=== PATIENT | male | born 1995 | race Caucasian/White ===

== ENCOUNTER 2016-11-15 16:22 | Emergency (ER) | payer OTHER ==
[~2016-11-15] VITALS: Ht 175.3 cm; Wt 68.5 kg
[2016-11-15 16:35] VITALS: BP 117/71; PULSE 80; TEMP 37; O2SAT 99; Ht 175.3 cm; Wt 68.5 kg
[2016-11-15] MEDS ORDERED: CYCL10TA6 PO (16:55)
[2016-11-15] MEDS ORDERED: HYDR-5688 PO (16:55)
--- NOTE | 2016-11-15 16:55 | EMERGENCY ROOM VISIT NOTE ---
ED Visit Note First contact with patient: 16:37 CHIEF COMPLAINT: Low back pain HISTORY OF PRESENT ILLNESS: This 21-year-old male patient presents to the emergency department ambulatory complaining of pain in the low back which began this morning. The patient states that he was lifting wood and he developed a sharp pain in his low back. The pain is located in the right side of the low back. It does not radiate anywhere. The pain was gradual in onset, is now constant and worse with movement, especially flexion. The patient notes the pain as sharp and a and 9/10. The patient has taken ibuprofen and Tylenol without relief of the pain. The patient denies any loss of control of their bowel or bladder functions. There has been no leg numbness or weakness, and no change in sensation. No nausea or vomiting or abdominal pain. No chest pain or shortness of breath. The patient has not had prior back injuries. No dysuria or increased urinary frequency. REVIEW OF SYSTEMS: A review of systems was performed with positives and pertinent negatives listed in the history of present illness. All other systems were reviewed and are negative. ALLERGIES: Tramadol MEDICATIONS: No chronic medications PMH: No significant past medical history. SOCIAL HISTORY: The patient lives locally with parents. He is a smoker and denies alcohol use. PHYSICAL EXAM: VITALS: Vitals are noted on the nurse's note and reviewed by myself. Vital signs stable. GENERAL: This is a 21-year-old male, in no acute distress, nondiaphoretic, well- developed well-nourished. SKIN: The skin was without rashes, erythema, edema, or bruising. Capillary refill less than 2 seconds. NECK: Supple without nuchal rigidity. No cervical spine tenderness. No paraspinous muscle tenderness. HEART: Regular rate and rhythm without murmurs gallops or rubs. LUNGS: Clear to auscultation bilaterally without wheezes, rales or rhonchi. ABDOMEN: Positive bowel sounds x 4. Normal tympanic percussion. Soft, nontender, without masses or organomegaly. Bone sign negative. MUSCULOSKELETAL: No muscle atrophy, erythema, or edema noted of the back. There is no tenderness over the lumbar spinous processes. There is tenderness over the right lumbar paraspinous muscles. There is no tenderness over the thoracic spine or paraspinous muscles. There are no muscle spasms present. The patient is slow to move around with maximum tenderness with flexion. Negative straight leg raise test. NEURO: Patient was alert and oriented to person place and time. Normal sensation to light and sharp touch. Deep tendon reflexes 2+ in the lower extremities. Dorsalis pedis pulse 2+ bilaterally. Strength 5/5 and equal in the bilateral lower extremities. EMERGENCY DEPARTMENT COURSE: The patient was evaluated as above. He presents with atraumatic low back pain consistent with lumbar muscle strain. There is nothing to suggest cauda equina syndrome or cord compression. The patient will be treated with Flexeril and a short course of [place] for pain. Conservative measures were discussed. The [place] prescription drug monitoring program was queried and no red flags were identified. The patient verbalized understanding of my assessment and treatment plan and was discharged home in good condition. DIAGNOSIS: Lumbar strain Problem List Medical Problems: (1) Pelvic fracture Status: Resolved Current/Historical Medications Scheduled Cyclobenzaprine Hcl (Flexeril), 10 MG PO TID Ibuprofen (Advil), 200-400 MG PO prn ud Scheduled PRN Acetaminophen (Tylenol), 1,000 MG PO Q6 PRN for Pain Hydrocodone/Acetaminophen 5MG/325MG ([place] 5MG/325MG), 1-2 TABLET PO Q4H PRN for Pain Allergies Coded Allergies: Tramadol (Verified Adverse Reaction, Intermediate, VOMIT, 05/21/16) Uncoded Allergies: WOOL (Allergy, Unknown, hives, 11/11/15) Vital Signs Date Time Temp Pulse Resp B/P Pulse Ox O2 Delivery O2 Flow Rate FiO2 11/15/16 16:35 37.0 80 18 117/71 99 Room Air Departure Information Impression Primary Impression: Strain of lumbar region Dispostion Home / Self-Care Condition GOOD Prescriptions Hydrocodone/Acetaminophen 5MG/325MG ([place] 5MG/325MG) Tab 1-2 TABLET PO Q4H Y for Pain, #10 TAB For Initial Treatment Prov: Rosario Velasquez PA-C 11/15/16 Cyclobenzaprine Hcl (FLEXERIL) 10 Mg Tab 10 MG PO TID for 3 Days, #9 TAB Prov: Rosario Velasquez PA-C 11/15/16 Referrals No Doctor, Assigned (PCP) Patient Instructions My [facility] Additional Instructions You have been treated in the Emergency Department for Back Pain. You have been prescribed [place] to be used for pain control. This is a narcotic medication. You cannot drive or consume alcohol while on this medicine. This medicine should only be used for pain that cannot be controlled with over-the- counter pain medicines. You have been prescribed Flexeril (cyclobenzaprine) 1-2 tabs orally, three times per day. Do NOT exceed 30 mg (6 tabs) per day. Take your first dose at bedtime as it can make you drowsy. Always take all medications as prescribed. For pain control, you can use the following pbef-xbf-oykgyvh medicines (if >12 yo): - Regular strength (325mg/tab) Tylenol (acetaminophen) 2 tabs every 4-6 hours as needed. Do not exceed 12 tablets in a 24 hour period. Avoid taking more than 4 grams (4000 mg) of Tylenol per day. This includes any other sources of acetaminophen you may take on a regular basis. - Regular strength (200 mg/tab) Advil (ibuprofen) 1-2 tabs every 4-6 hours as needed. Do not exceed a dose of 3200 mg per day. If this is an acute injury, ice can be applied to the area of pain for the first 3 days to help decrease pain and inflammation. After the first 3 days, a heating pad can be used over the area for continued soothing relief. You should schedule a follow-up appointment in 2-3 days with your Primary Care Provider for further evaluation and treatment of your back pain. Return to the Emergency Department if your current symptoms worsen despite treatment course outlined above, or if you develop any of the following symptoms : intractable pain despite aforementioned treatment course, loss of control of your bowel or bladder, numbness or tingling in your groin, or development of a fever. Problem Qualifiers Primary Impression: Strain of lumbar region Encounter type: initial encounter Qualified Codes: S39.012A - Strain of muscle, fascia and tendon of lower back, initial encounter
[2016-11-15] MEDS ORDERED: IBUP-1050 PO (16:59)
[2017-04-19] MEDS ORDERED: ACET-1256 PO (16:59)
== END 2016-11-15 17:05 | disposition home or self-care (01) ==
LOC: C.EDB 16:25 → C.EDD 17:05
DX: S39.012A Strain of muscle, fascia and tendon of lower back, initial encounter (principal); X50.1XXA Overexertion from prolonged static or awkward postures, initial encounter; Y92.89 Other specified places as the place of occurrence of the external cause; Y93.89 Activity, other specified; Z79.899 Other long term (current) drug therapy

== ENCOUNTER 2016-12-03 12:43 | Emergency (ER) | payer OTHER ==
[~2016-12-03] VITALS: Ht 175.3 cm; Wt 68.9 kg
[~2016-12-03 12:43] MED LIST: HYDR-5688 PO; IBUP-1050 PO
[2016-12-03 12:45] VITALS: Ht 175.3 cm; Wt 68.9 kg
[2016-12-03] MEDS ORDERED: FLX10 PO (12:52)
--- NOTE | 2016-12-03 13:04 | EMERGENCY ROOM VISIT NOTE ---
ED Visit Note First contact with patient: 12:47 CHIEF COMPLAINT: "Deep in back or in a lot of pain". HISTORY OF PRESENT ILLNESS: This 21-year-old male patient presented to the emergency department via private vehicle with a progressive toothache for past few days. The patient believes it is coming from the posterior superior and inferior molar region at the location where . the wisdom teeth are The pain is now steady and severe and radiates to the bilateral jaws. The patient has a dentist appointment set up for tomorrow. They rate their pain a 7/10 and the ibuprofen and Tylenol they have been taking has not relieved the pain. Denies facial swelling or fever. The patient denies any discharge from the mouth. Patient denies any throat swelling, throat pain, fevers, chills, chest pain, shortness of breath. REVIEW OF SYSTEMS: A 6 system review of systems was completed with positives and pertinent negatives listed in the HPI. 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 PHYSICAL EXAM: Vitals are noted on the nurse's note and reviewed by myself. Vital signs stable. Temperature 36.8C orally. GENERAL: 21-year-old male, in no acute distress, nondiaphoretic, well-developed well-nourished. Mouth: The mouth exam is essentially unremarkable except for pinpoint tenderness at the posterior molar region at the region where the wisdom teeth should be, exam without any discharge or signs of an abscess. The remainder of the pharynx and tonsils are without erythema, edema, or exudate. There is slight associated trismus, but the patient states that when he opens his mouth muscles press on the molar regions causing pain. There is no tonsillar involvement. The airway is patent. There is no facial swelling, cervical or submandibular lymphadenopathy. The patient appears uncomfortable and in pain. The patient has overall good dental hygiene. EARS: External auditory canals clear, tympanic membranes pearly montalvo without erythema or effusion bilaterally. ED COURSE: Patient was seen and evaluated as above. Physical exam is consistent with that of pain with teething. It appears that the patient is experiencing his molar teeth being crowded/pressed upon by the upcoming wisdom teeth. It appears that the permanent fix for this his extraction of the wisdom teeth. At this time I do believe it is reasonable to provide the patient with a short-term prescription for pain medication until he can see his dentist tomorrow. There was no evidence of infection. No evidence of throat, Lon angina or any other infectious process. In the evaluation and treatment of this patient, the following differential diagnoses were considered: Periapical Abscess, Osteonecrosis of the Jaw, Dental Fracture, Dental Caries, Lon's Angina, teething pain, Vincent's Angina, Facial Cellulitis. In the treatment of this patient controlled medication was utilized and therefore the [facility], Prescription Drug Monitoring Program website was utilized to look up this patient. No concerns were identified that would prohibit or alter my treatment decision. Problem List Medical Problems: (1) Pelvic fracture Status: Resolved Current/Historical Medications Scheduled Cyclobenzaprine HCl (Cyclobenzaprine HCl), 1 TAB PO DAILY Ibuprofen (Advil), 200-400 MG PO prn ud Scheduled PRN Acetaminophen (Tylenol), 1,000 MG PO Q6 PRN for Pain Hydrocodone/Acetaminophen 5MG/325MG ([place] 5MG/325MG), 1-2 TABLET PO Q6 PRN for Pain Allergies Coded Allergies: Tramadol (Verified Adverse Reaction, Intermediate, VOMIT, 12/03/16) Uncoded Allergies: WOOL (Allergy, Unknown, hives, 11/11/15) Vital Signs Date Time Temp Pulse Resp B/P Pulse Ox O2 Delivery O2 Flow Rate FiO2 12/03/16 13:12 36.8 106 18 136/70 96 12/03/16 12:45 36.8 106 18 136/70 96 Room Air Departure Information Impression Primary Impression: Odontalgia Dispostion Home / Self-Care Condition GOOD Prescriptions Hydrocodone/Acetaminophen 5MG/325MG ([place] 5MG/325MG) Tab 1-2 TABLET PO Q6 Y for Pain, #15 TAB For Initial Treatment Prov: Vin Bunch PA-C 12/03/16 Referrals No Doctor, Assigned (PCP) Patient Instructions My [facility] Additional Instructions You have been treated in the Emergency Department for Dental Pain. You have been prescribed [place] to be used for pain control. This is a narcotic medication. You cannot drive or consume alcohol while on this medicine. This medicine should only be used for pain that cannot be controlled with over-the- counter pain medicines. DO NOT TAKE WITH TYLENOL!! For pain control, you can use the following rleo-ebc-knolasc medicines (if >12 yo): - Regular strength (200 mg/tab) Advil (ibuprofen) 1-2 tabs every 4-6 hours as needed. Do not exceed a dose of 3200 mg per day. Refrain from smoking cigarettes or using chewing tobacco until you have been evaluated by your dentist. Keeping beverages lukewarm and consuming soft foods can decrease your pain. Warm compresses over the affected area may offer some relief. You MUST seek evaluation of your dental pain by a dentist following your visit to the Emergency Department. The Emergency Department is not capable of treating dental issues long-term. You should call your dentist as soon as possible to make an appointment for evaluation of your dental pain. Return to the emergency department if you develop the following symptoms despite treatment course outlined above: fever, intractable pain, increased redness, swelling, or purulent discharge. Please return to the emergency department with any new/concerning symptoms
[2016-12-03] MEDS ORDERED: HYDR-5688 PO (13:05)
[2016-12-03 13:12] VITALS: BP 136/70; PULSE 106; TEMP 36.8; O2SAT 96
[2017-04-19] MEDS ORDERED: ACET-1256 PO (16:59)
== END 2016-12-03 13:12 | disposition home or self-care (01) ==
LOC: C.EDB 12:43 → C.EDD 13:12
DX: K08.89 Other specified disorders of teeth and supporting structures (principal)

== ENCOUNTER 2017-01-01 19:08 | Emergency (ER) | payer OTHER ==
[~2017-01-01] VITALS: Ht 175.3 cm; Wt 69.6 kg
[~2017-01-01 19:08] MED LIST changes: +FLX10 PO
[2017-01-01 19:16] VITALS: BP 121/79; PULSE 74; TEMP 37; O2SAT 99; Ht 175.3 cm; Wt 69.6 kg
--- NOTE | 2017-01-01 22:33 | EMERGENCY ROOM VISIT NOTE ---
History First contact with patient: 19:22 Chief Complaint: HEAD INJURY (MINOR) Stated Complaint: NECK HURTS, MIGRAINES History of Present Illness The patient is a 21 year old male who presents to the Emergency Room with complaints of persistent headache and neck pain after running into a low tree branch while running through the [place] 2 days ago. The patient reports that he is very physically active. He denies any loss of consciousness from this injury. The impact was on the right forehead region, and has had intermittent discomfort in this area and left posterior head. He also reports mostly left- sided neck discomfort. He denies any paresthesias, numbness or burning of the upper extremities. He also denies any pain radiating between the shoulder blades. He reports feeling fatigued and with mild photophobia. He denies any dizziness or coordination problems. The patient rates his discomfort a 6 out of 10. He currently does not have a family doctor. He denies any prior history of significant head injuries. Review of Systems 10 system review was performed and was negative except for pertinent positives and negatives as indicated in history of present illness Past Medical/Surgical History Medical Problems: (1) Pelvic fracture Family History FH: heart disease Hypertension Social History Smoking Status: Current Every Day Smoker Alcohol Use: none Marital Status: single Housing Status: lives with family Occupation Status: student Current/Historical Medications Scheduled Cyclobenzaprine HCl (Cyclobenzaprine HCl), 1 TAB PO DAILY Ibuprofen (Advil), 200-400 MG PO prn ud Scheduled PRN Acetaminophen (Tylenol), 1,000 MG PO Q6 PRN for Pain Hydrocodone/Acetaminophen 5MG/325MG ([place] 5MG/325MG), 1-2 TABLET PO Q6 PRN for Pain Allergies Coded Allergies: Tramadol (Verified Adverse Reaction, Intermediate, VOMIT, 12/03/16) Uncoded Allergies: WOOL (Allergy, Unknown, hives, 11/11/15) Physical Exam Vital Signs Date Time Temp Pulse Resp B/P Pulse Ox O2 Delivery O2 Flow Rate FiO2 01/01/17 19:16 37.0 74 16 121/79 99 Room Air Pain Rating (0-10): 5.0 Physical Exam CONSTITUTIONAL: Healthy and well nourished. Alert and oriented X 3 with positive affect. GCS 15. HEENT: Normocephalic, atraumatic. Pupils equal, round and reactive. No forehead or scalp edema, ecchymosis, erythema, abrasions or lacerations. No subconjunctival hemorrhage, epistaxis, hemotympanum, raccoon's eyes or Reeves sign. NECK: Examination shows left paraspinous muscle tightness. He also has mild tenderness to the central cervical spine region. RESPIRATORY: Clear to auscultation bilaterally with no wheezing, crackles, rhonchi or stridor. CARDIOVASCULAR: Regular rate and rhythm with no murmurs, rubs or gallops. MUSCULOSKELETAL: The patient has a left above elbow malformation. He has no worsening discomfort with range of motion of the shoulders. No tenderness to palpation through the trapezius muscles or thoracolumbar spine. INTEGUMENTARY: No rash or other significant dermatologic conditions noted. NEUROLOGIC: Cranial nerves II-XII grossly intact. No focal neurologic deficits noted. Normal finger to nose test on the right. Negative pronator drift. No ataxia with ambulation. Medical Decision & Procedures ED Course Patient history and physical exam were performed. Nurse's notes were reviewed. I did offer a CT scan to rule out intracranial bleed or cervical spine fracture. The patient refused. He wanted to know if he could get a prescription for a muscle relaxer. I did explain to the patient that his symptoms are consistent with concussion, and I would prefer not to prescribe medications that can make him drowsy. He was encouraged to take Tylenol as needed for pain. He was also encouraged to refrain from NSAIDs and aspirin for now. He was encouraged to alternate ice and heat to the neck. He was instructed to return to the emergency department for any progressively worsening symptoms, otherwise find a family doctor for further follow-up. The patient was provided a concussion handout. The patient voiced understanding of all discharge instructions was happy with plan of care, and rated his pain a 5 out of 10 at the time of discharge. Impression Primary Impression: Concussion Additional Impression: Cervical strain, acute Departure Information Dispostion Home / Self-Care Condition [employer] HOME CARE DOCUMENTATION FORM, IMPORTANT VISIT INFORMATION Patient Instructions My [facility], ED Concussion Additional Instructions Read concussion handout. No strenuous activities until your headache completely resolves. Intermittently apply ice to the neck over the next few days, then moist heat as needed. Tylenol 1000 mg every 6-8 hours. Avoid ibuprofen/Motrin/Aleve/Advil/naproxen for now. Return to the emergency department for any progressively worsening symptoms, otherwise follow-up with your family doctor as needed for further management. FOR WORK: Vlad was in the ER [facility], 10/01/16 from 7:15-7:40 PM. Problem Qualifiers Primary Impression: Concussion Encounter type: initial encounter Loss of consciousness presence/duration: without LOC Qualified Codes: S06.0X0A - Concussion without loss of consciousness, initial encounter Additional Impression: Cervical strain, acute Encounter type: initial encounter Qualified Codes: S16.1XXA - Strain of muscle, fascia and tendon at neck level, initial encounter
[2017-04-19] MEDS ORDERED: ACET-1256 PO (16:59)
== END 2017-01-01 19:47 | disposition home or self-care (01) ==
LOC: C.EDB 19:09 → C.EDD 19:47
DX: S06.0X0A Concussion without loss of consciousness, initial encounter (principal); S16.1XXA Strain of muscle, fascia and tendon at neck level, initial encounter; W22.09XA Striking against other stationary object, initial encounter; Y92.828 Other wilderness area as the place of occurrence of the external cause; Y93.02 Activity, running; M21.922 Unspecified acquired deformity of left upper arm; F17.200 Nicotine dependence, unspecified, uncomplicated; Z82.49 Family history of ischemic heart disease and other diseases of the circulatory system

== ENCOUNTER 2017-01-14 18:00 | Emergency (ER) | payer OTHER ==
[~2017-01-14] VITALS: Ht 175.3 cm; Wt 66.5 kg
[2017-01-14 18:15] VITALS: TEMP 37.1; Ht 175.3 cm; Wt 66.5 kg
[2017-01-14] MEDS ORDERED: KETOROLAC TROMETHAMINE 60 MG/2 ML VIAL IM STA (18:31)
--- NOTE | 2017-01-14 19:33 | DIAGNOSTIC IMAGING REPORT ---
PELVIS 1 OR 2 VIEW ROUTINE CLINICAL HISTORY: right lower bakc pain s/p fall pain COMPARISON: None. DISCUSSION: The bones and joint spaces appear intact. There is no evidence of fracture, dislocation or bony disease. There is no evidence for soft tissue swelling. IMPRESSION: Negative study. Electronically signed by: Tank Wolff M.D. 01/14/2017 7:31 PM Dictated Date/Time: 01/14/2017 7:31 PM
--- NOTE | 2017-01-14 19:34 | DIAGNOSTIC IMAGING REPORT ---
LUMBAR SPINE 2 OR 3 VIEWS CLINICAL HISTORY: lower back pain pain. Trauma. COMPARISON STUDY: 05/21/2016 FINDINGS: No evidence for acute bony pathology. Vertebral body stature is normal. Disc spaces are well-preserved. Slight scoliosis most likely on the basis of muscular spasm IMPRESSION: No acute bony abnormality Electronically signed by: Tank Wolff M.D. 01/14/2017 7:32 PM Dictated Date/Time: 01/14/2017 7:32 PM
[2017-01-14 20:32] VITALS: BP 120/89; PULSE 81; O2SAT 99
--- NOTE | 2017-01-14 22:31 | EMERGENCY ROOM VISIT NOTE ---
History Report prepared by Peace: Sherie Valdez Under the Supervision of: Dr. Raman Armstrong D.O. First contact with patient: 18:20 Chief Complaint: BACK PAIN Stated Complaint: SWELLING AND MAJOR PAIN LOWER BACK History of Present Illness The patient is a 21 year old male who presents to the Emergency Room with complaints of persistent lower back pain starting several days ago. He was going up some steps when he slipped and fell onto his lower back. He has had pain since then. He took Tylenol to no significant relief. He reports swelling in his lower back. He denies any numbness or weakness in the legs. He denies any head injury. He denies any other medical problems. He admits to smoking. Denies any chest or abdomen pain. He is able to walk without difficulty. No numbness in his groin. Able to urinate and move his bowels without difficulty. Source of History: patient Onset: several days ago Position: back (lower) Quality: other (pain) Timing: other (persistent) Associated Symptoms: No numbness, No weakness Note: Pt reports swelling. Review of Systems See HPI for pertinent positives & negatives. A total of 10 systems reviewed and were otherwise negative. Past Medical & Surgical Medical Problems: (1) Nicotine Dependence, Cigarettes, Uncomplicated (2) Pelvic fracture (3) Pneumonia Family History FH: heart disease Hypertension Social History Smoking Status: Current Every Day Smoker Alcohol Use: none Marital Status: single Housing Status: lives with family Occupation Status: student Current/Historical Medications Scheduled Cyclobenzaprine HCl (Cyclobenzaprine HCl), 1 TAB PO DAILY Ibuprofen (Advil), 200-400 MG PO prn ud Scheduled PRN Acetaminophen (Tylenol), 1,000 MG PO Q6 PRN for Pain Hydrocodone/Acetaminophen 5MG/325MG ([place] 5MG/325MG), 1-2 TABLET PO Q6 PRN for Pain Allergies Coded Allergies: Tramadol (Verified Adverse Reaction, Intermediate, VOMIT, 12/03/16) Uncoded Allergies: WOOL (Allergy, Unknown, hives, 11/11/15) Physical Exam Vital Signs Date Time Temp Pulse Resp B/P Pulse Ox O2 Delivery O2 Flow Rate FiO2 01/14/17 20:32 81 16 120/89 99 01/14/17 18:15 37.1 72 18 128/81 98 Room Air Physical Exam GENERAL: sitting up in bed, no acute distress, nontoxic HEAD: normocephalic, atraumatic EYE EXAM: normal conjunctiva OROPHARYNX: no exudate, no erythema, lips, buccal mucosa, and tongue normal and mucous membranes are moist NECK: supple, no nuchal rigidity, no adenopathy, non-tender LUNGS: Clear to auscultation. Normal chest wall mechanics HEART: no murmurs, S1 normal and S2 normal ABDOMEN: abdomen soft, non-tender, normo-active bowel sounds, no masses, no rebound or guarding. BACK: Right lower lumbar paraspinal tenderness with scant swelling. PELVIS: Stable to compression posteriorly and anteriorly. 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 LOWER EXTREMITIES: Flexion and extension of the hip knee ankle and EHL 5 out of 5 bilateral. Patellar and Achilles reflexes 2 out of 4. Gross sensation intact. Ambulates without difficulty. NEURO EXAM: Normal sensorium, cranial nerves II-XII grossly intact, normal speech, no gross weakness of arms. Medical Decision & Procedures ER Provider Diagnostic Interpretation: Xray results as stated below per my and the radiologist's interpretation: PELVIS 1 OR 2 VIEW ROUTINE CLINICAL HISTORY: right lower bakc pain s/p fall pain COMPARISON: None. DISCUSSION: The bones and joint spaces appear intact. There is no evidence of fracture, dislocation or bony disease. There is no evidence for soft tissue swelling. IMPRESSION: Negative study. Electronically signed by: Tank Wolff M.D. 01/14/2017 7:31 PM Dictated Date/Time: 01/14/2017 7:31 PM LUMBAR SPINE 2 OR 3 VIEWS CLINICAL HISTORY: lower back pain pain. Trauma. COMPARISON STUDY: 05/21/2016 FINDINGS: No evidence for acute bony pathology. Vertebral body stature is normal. Disc spaces are well-preserved. Slight scoliosis most likely on the basis of muscular spasm IMPRESSION: No acute bony abnormality Electronically signed by: Tank Wolff M.D. 01/14/2017 7:32 PM Dictated Date/Time: 01/14/2017 7:32 PM Medications Administered Medications (Trade) Dose Ordered Sig/Shanika Route Start Time Stop Time Status Last Admin Dose Admin Ketorolac Tromethamine (Toradol Inj) 60 mg NOW STAT IM 01/14/17 18:31 01/14/17 18:33 DC 01/14/17 18:37 60 MG ED Course ED COURSE: Vital signs were reviewed and showed normal vitals. The patients medical record was reviewed The above diagnostic studies were performed and reviewed. ED treatments and interventions as stated above. 1823: The patient was evaluated in room C8. A complete history and physical examination was performed. 183: Toradol Inj 60 mg IM. 2009: Upon reevaluation, the patient is resting comfortably.I discussed my findings with the patient and he understands and agrees with the treatment plan. Based on the patients age, coexisting illnesses, exam and lab findings the decision to treat as an outpatient was made. The patient remained stable while under my care. The patient appeared well at the time of discharge. Medical Decision Differential diagnoses include major intracranial, cervical, spinal, thoracic, abdominal, pelvic and neurologic injury. Fracture, contusion, sprain, strain, laceration, abrasions included as well. Impression Primary Impression: Contusion, back Scribe Attestation The scribe's documentation has been prepared under my direction and personally reviewed by me in its entirety. I confirm that the note above accurately reflects all work, treatment, procedures, and medical decision making performed by me. Departure Information Dispostion Home / Self-Care Referrals No Doctor, Assigned (PCP) Forms HOME CARE DOCUMENTATION FORM, IMPORTANT VISIT INFORMATION, School Instructions, Work Instructions Patient Instructions ED Contusion Back, My [facility] Additional Instructions Please follow up with your primary care doctor with in the next 24 hours. Any worsening of your symptoms, please return to the ED immediately. This includes numbness or weakness in your arms or legs, numbness in your groin, inability to move your bowels or urinate, or any other concerning signs or symptoms from your standpoint. Please take Motrin or Tylenol as needed for pain. Problem Qualifiers Primary Impression: Contusion, back Encounter type: initial encounter Laterality: right Qualified Codes: S20.221A - Contusion of right back wall of thorax, initial encounter
[2017-04-19] MEDS ORDERED: ACET-1256 PO (16:59)
== END 2017-01-14 20:30 | disposition home or self-care (01) ==
LOC: C.EDB 18:02 → C.EDC 20:30
DX: S20.221A Contusion of right back wall of thorax, initial encounter (principal); W10.9XXA Fall (on) (from) unspecified stairs and steps, initial encounter; F17.210 Nicotine dependence, cigarettes, uncomplicated; Z89.212 Acquired absence of left upper limb below elbow

== ENCOUNTER 2017-04-19 20:58 | Emergency (ER) | payer OTHER ==
[~2017-04-19] VITALS: Ht 175.3 cm; Wt 67.4 kg
[~2017-04-19 20:58] MED LIST changes: +ACET-1256 PO
[2017-04-19 21:03] VITALS: BP 113/75; PULSE 68; TEMP 37.1; O2SAT 97; Ht 175.3 cm; Wt 67.4 kg
[2017-04-19] MEDS ORDERED: XYLOCAINE 1%/SOD BICARB 20 ML VIAL INFIL STA (21:34)
[2017-04-19] MEDS ORDERED: OXYCODONE HCL IR 5 MG TAB (IMMEDIATE RELEASE) PO STA (21:34)
[2017-04-19] MEDS ORDERED: DIPHTHERIA/TETANUS/PERTUSSIS 0.5 ML SYR/VIAL IM. ONE (21:45)
[2017-04-19] MEDS ORDERED: CEPH500C PO (22:09)
[2017-04-19] MEDS ORDERED: CEPHALEXIN 500MG HOME PACK 1 EA BTL PO STA (22:10)
[2017-04-19] MEDS ORDERED: OXYCODONE IR HOME PACK PO STA (22:10)
--- NOTE | 2017-04-19 22:10 | EMERGENCY ROOM VISIT NOTE ---
ED Visit Note First contact with patient: 21:12 Chief Complaint: "Big cut on right hand". History of Present Illness: This patient is a 21-year-old male who presents to the Emergency Department via private vehicle for evaluation of their right hand laceration. Patient sustained the laceration while cutting a piece of meat earlier today, when the knife slipped and he cut the ventral aspect of his right hand. They report a moderate amount of bleeding initially. They deny any numbness or tingling into the distal extremity. They have tried Tylenol and ibuprofen for the pain with without relief of their symptoms. Patient rates his current discomfort as a 8.5/10. Patient's Tetanus status is believed to be not currently up-to-date. Medications: As noted below Allergies: As noted below PMH: Left arm amputation SHx: Patient lives locally ROS: All pertinent positive and negative review of systems are appropriately documented in the History of Present Illness. Physical Exam: VITAL SIGNS - Vital signs and nursing notes were reviewed. Stable. GENERAL -21-year-old male appearing his stated age who is in no acute distress. Communicates well with provider and answers questions appropriately. SKIN - There is a 3 cm long laceration noted to the ventral aspect of the right hand. The edges gape apart with traction. No foreign bodies appreciated. Upon further examination there are no deep structures including vessel, tendon, or bony structures appreciated. There is no active bleeding noted. MUSCULOSKELETAL -full range of motion of the right hand noted. Full flexion and extension ability of the digits of the right hand. No neurovascular deficit appreciated. ED Course: Patient was seen and evaluated by myself. Risks and benefits of performing primary wound closure versus no repair were discussed with the patient who verbalizes understanding. Verbal consent was obtained prior to performing the procedure. 2 cc of 1% lidocaine was used to anesthetize the 3 cm laceration. The wound was cleansed and prepped in the typical sterile fashion utilizing normal saline and Betadine. The wound was sterilely draped. Once proper anesthetization was established, the wound was further examined and demonstrated no deep involvement except in the middle portion of which did not extend below the dermis. The wound was copiously irrigated with normal saline and Betadine. The wound was closed using 2 simple, 5-0 nylon sutures with the wound edges being well approximated. The patient is presenting to 12 hours after the injury, therefore this will be loosely closed with 2 sutures after Melendez cleansing the wound, and prophylaxis with Keflex. Patient tolerated the procedure well. No complications were met. The wound was cleansed and dressed with a Bacitracin dressing. Patient received their Adacel vaccination. Patient educated on worrisome symptoms for return visit to the Emergency Department. Patient discharged to home in good condition. Because of the patient's amount of pain that he was experiencing, I will give him a short prescription of pain medication via home pack In evaluation treatment this patient following differential diagnoses were entertained: Fracture, laceration, among others. Problem List Medical Problems: (1) Pelvic fracture Status: Resolved Current/Historical Medications Scheduled Cephalexin Monohydrate (Keflex), 500 MG PO TID Scheduled PRN Acetaminophen (Tylenol), 1,000 MG PO Q6 PRN for Pain Allergies Coded Allergies: Tramadol (Verified Adverse Reaction, Intermediate, VOMIT, 12/03/16) Uncoded Allergies: WOOL (Allergy, Unknown, hives, 11/11/15) Vital Signs Date Time Temp Pulse Resp B/P (MAP) Pulse Ox O2 Delivery O2 Flow Rate FiO2 04/19/17 21:03 37.1 68 18 113/75 97 Room Air Medications Administered Medications (Trade) Dose Ordered Sig/Shanika Route Start Time Stop Time Status Last Admin Dose Admin Oxycodone HCl (Roxicodone Immediate Rel Tab) 5 mg NOW STAT PO 04/19/17 21:34 04/19/17 21:35 DC 04/19/17 21:42 5 MG Diphtheria/ Pertussis/Tetanus Vacc (Adacel Inj) 0.5 ml ONCE ONCE IM. 04/19/17 21:45 04/19/17 21:47 DC 04/19/17 21:41 0.5 ML Cephalexin Monohydrate (Keflex 500MG Home Pack) 1 homepack NOW STAT PO 04/19/17 22:10 04/19/17 22:12 DC 04/19/17 22:10 1 HOMEPACK Oxycodone HCl (Roxicodone Immediate Rel 5MG Home Pack) 1 homepack UD STAT PO 04/19/17 22:10 04/19/17 22:12 DC 04/19/17 22:10 1 HOMEPACK Departure Information Impression Primary Impression: Laceration Dispostion Home / Self-Care Condition GOOD Prescriptions Cephalexin Monohydrate (Keflex) 500 Mg Cap 500 MG PO TID for 5 Days, #15 CAP Prov: Vin Bunch PA-C 04/19/17 Referrals No Doctor, Assigned (PCP) Patient Instructions My [facility] Additional Instructions Discharge Instructions: You have received 2 sutures on your hand. These sutures are NOT dissolvable and WILL need to be removed by a health care provider in 10 days. You can return to the Emergency Department or contact your Primary Care Provider to have the sutures removed. You've been prescribed Keflex which is to be taken as directed. You were prescribed a short course of OxyIR for pain. Please note driving with this. Proper wound care is essential for adequate wound healing and infection prevention. You can shower and clean the wound with soap and water. Do not scour over the wound, pat dry with a towel. Do not submerse the wound (i.e. bathe or dish wash) until the sutures have been removed. You can use an antibiotic ointment with a dressing over the wound for the next 3-4 days. After this time you may leave the wound dry and open to the air. If crust develops over the wound you can use a Q-tip to apply a 1:1 peroxide:water solution to clean the wound. Look for signs of infection of the wound including: increased pain, swelling, foul discharge, streaking, or increased temperature. If any of these are noticed you should return to the Emergency Department for further assessment and treatment. As with any laceration you may have received nerve damage to the surrounding tissues. This damage may or may not be permanent. You should keep the area covered with sunscreen for the first 6 months to 1 year when at risk for exposure to help minimize scarring. You can also use scar reducing creams or Vitamin E oil to help minimize scarring. For pain control, you can use the following [id number] medicines: - Regular strength (325mg/tab) Tylenol (acetaminophen) 2 tabs every 4-6 hours as needed. Do not exceed 12 tablets in a 24 hour period. Avoid taking more than 3 grams (3000 mg) of Tylenol per day. This includes any other sources of acetaminophen you may take on a regular basis. - Regular strength (200 mg/tab) Advil (ibuprofen) 1-2 tabs every 4-6 hours as needed. Do not exceed a dose of 3200 mg per day. Return to the emergency department if your symptoms worsen despite treatment course outlined above.
== END 2017-04-19 22:25 | disposition home or self-care (01) ==
LOC: C.EDB 20:59 → C.EDD 22:25
DX: S61.411A Laceration without foreign body of right hand, initial encounter (principal); W26.0XXA Contact with knife, initial encounter; Z23 Encounter for immunization

== ENCOUNTER 2018-03-22 13:26 | Emergency (ER) | payer OTHER ==
[~2018-03-22] VITALS: Ht 175.3 cm; Wt 69.9 kg
[~2018-03-22 13:26] MED LIST changes: -FLX10 PO; -HYDR-5688 PO; -IBUP-1050 PO
[2018-03-22 13:30] VITALS: TEMP 36.7; Ht 175.3 cm; Wt 69.9 kg
--- NOTE | 2018-03-22 14:28 | DIAGNOSTIC IMAGING REPORT ---
R KNEE 3 VIEWS CLINICAL HISTORY: Right knee pain status post trauma COMPARISON: None. DISCUSSION: No fractures or dislocations are visualized. IMPRESSION: No fractures identified. Electronically signed by: Marc Abarca M.D. 03/22/2018 2:26 PM Dictated Date/Time: 03/22/2018 2:26 PM
--- NOTE | 2018-03-22 14:37 | EMERGENCY ROOM VISIT NOTE ---
ED Visit Note First contact with patient: 13:34 CHIEF COMPLAINT: knee pain HISTORY OF PRESENT ILLNESS: This 22 yp patient presents to the emergency department after sustaining an injury to the right knee when he twisted it earlier this morning. The patient denies any other injuries besides their knee. The patient denies swelling or bruising. There is pain posterior aspect. They rate the pain as throbbing and 6/10. The patient states they are barely able to walk on it. No numbness or tingling. + previous injuries to this knee. No ankle, foot or hip pain. Patient states he occasionally gets radiating pain down the leg. Not constant. Patient denies carmona ankle or foot pain. Patient states the Motrin and Tylenol have not helped and states he thinks are made of sugar. REVIEW OF SYSTEMS: A 6 system review of systems was completed with positives and pertinent negatives listed in the HPI. ALLERGIES: Tramadol, wool MEDICATIONS: Reviewed PMH: Orthopedic injuries SOCIAL HISTORY: No drug use PHYSICAL EXAM: Vital Signs: Reviewed Nurse's notes, vital signs stable. GENERAL : White male, no acute distress, but appears in pain, well-developed, well- nourished. MENTAL STATUS: Alert, oriented to person place and time, and cooperative. MUSCULOSKELETAL: The right knee is not swollen. There is no ecchymosis. There is no joint effusion present. The patient is tender diffusely. There is no joint line tenderness. The patella not subluxate. Range of motion is intact but painful. Strength of the quads and hamstrings is 5/5. Melany's is negative. Gavi's and Anterior Drawer tests are negative. There is pain with varus and valgus stressing. The foot and toes are warm and well- perfused. Dorsalis pedis pulse 2+. Sensation to pain and light touch is intact. Capillary refill less than 2 seconds. EMERGENCY DEPARTMENT COURSE: I examined the patient. X-rays of the right knee were reviewed by myself and read by radiology and reveal no fracture. The patient was placed in a knee immobilizer under my direction and the position was satisfactory. The patient was instructed on the use of crutches. The patient was discharged home in good condition. Patient was strongly encouraged to take NSAIDs for the pain and to follow-up with orthopedics. DIAGNOSIS: Right knee injury DISCHARGE INSTRUCTIONS: Ibuprofen(Motrin, Advil) may be used for fever or pain. Use 600mg every six hours as needed. Take with food. Avoid using more than 2400mg in a 24 hour period. Do not use 2400mg per day for more than three consecutive days without physician direction. Prolonged inappropriate use can lead to stomach upset or ulcers. This medication can be taken if you need to drive, work, or perform activities which may be dangerous when taking narcotic pain medication. (AND/OR) Acetaminophen(Tylenol) may be used for fever or pain. Use 1000mg every six hours as needed. Avoid using more than 3000mg in a 24 hour period. This medication can be taken if you need to drive, work, or perform activities which may be dangerous when taking narcotic pain medication. Ice compresses for 20 minutes at a time four times daily for 2-3 days. Use the crutches as instructed. Rest and elevate your injury. Wear knee immobilizer when up and about. Do not have it so tight that you cannot feel your foot. Continue current medications. Return to the ER immediately for any numbness, tingling, severe pain, extreme swelling in the extremity or as needed. Call Orthopedics in 2-3 days to arrange follow up for your injury. Problem List Medical Problems: (1) Pelvic fracture Status: Resolved Current/Historical Medications Scheduled PRN Acetaminophen (Tylenol), 1,000 MG PO Q6 PRN for Pain Allergies Coded Allergies: Tramadol (Verified Adverse Reaction, Intermediate, VOMIT, 12/03/16) Uncoded Allergies: WOOL (Allergy, Unknown, hives, 11/11/15) Vital Signs Date Time Temp Pulse Resp B/P (MAP) Pulse Ox O2 Delivery O2 Flow Rate FiO2 03/22/18 13:30 36.7 96 17 149/75 99 Room Air Departure Information Referrals No Doctor, Assigned (PCP) [facility] Instructions [facility]
[2018-03-22 14:47] VITALS: BP 119/55; PULSE 66; O2SAT 97
== END 2018-03-22 15:01 | disposition home or self-care (01) ==
LOC: C.EDB 13:27 → C.EDD 15:01
DX: S89.91XA Unspecified injury of right lower leg, initial encounter (principal); X50.0XXA Overexertion from strenuous movement or load, initial encounter; Z88.8 Allergy status to other drugs, medicaments and biological substances; Z91.048 Other nonmedicinal substance allergy status

== ENCOUNTER 2018-09-08 04:17 | Inpatient (IN) ==
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
[2018-09-08 04:59] LABS: Basophils # (auto) 0.03 K/uL (0-0.2); Basophils % (auto) 0.3 %; Eosinophils # (auto) 0.06 K/uL (0-0.5); Eosinophils % (auto) 0.5 %; Hematocrit (blood only) 43.8 % (42-52); Hemoglobin 15.9 g/dL (14.0-18.0); Immature Granulocytes # (auto) 0.02 K/uL (0.00-0.02); Immature Granulocytes % (auto) 0.2 %; Lymphocytes # (auto) 2.76 K/uL (1.2-3.4); Mean Corpuscular Hgb Conc 36.3 g/dL (32-36); Mean Corpuscular Volume 86.7 fL (80-100); Mean Platelet Volume 10.2 fL (7.4-10.4); Monocytes # (auto) 0.81 K/uL (0.11-0.59); Monocytes % (auto) 6.8 %; Neutrophils % (auto) 69.2 %; Platelet Count 332 K/uL (130-400); RDW Coefficient of Variation 12.5 % (11.5-14.5); RDW Standard Deviation 39.7 fL (36.4-46.3); Red Blood Count 5.05 M/uL (4.7-6.1); White Blood Count 11.98 K/uL (4.8-10.8)
[2018-09-08 05:08] LABS: Albumin Level 4.3 gm/dl (3.4-5.0); Calcium 9.2 mg/dl (8.5-10.1); Est GFR (African American) 146.5; Est GFR (Non-African American) 126.4; Potassium 3.4 mmol/L (3.5-5.1)
[2018-09-08 05:18] LABS: Albumin Globulin Ratio 1.2 (0.9-2); Bilirubin,Total 0.4 mg/dl (0.2-1); Globulin 3.5 gm/dl (2.5-4.0); Total Protein 7.8 gm/dl (6.4-8.2)
[2018-09-08 05:26] LABS: Acetaminophen < 2 ug/ml (10-30); Salicylate 2.1 mg/dl (2.8-20)
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
[2018-09-08 08:00] LABS: Appearance Urine Clear (Clear); Bacteria Urine Automated Negative (Negative); Color Urine Dark Yellow; Glucose Urine UA Negative (Negative); Ketones Urine Trace (Negative); Leukocyte Esterase Urine Negative (Negative); Nitrite Urine Negative (Negative); Protein Urine Trace (Negative); Specific Gravity Urine 1.035 (1.000-1.030); Urobilinogen Urine Negative (Negative); pH Urine 5.5 (4.5-7.5)
[2018-09-08 08:06] LABS: Bilirubin Urine Negative (Negative); Ictotest Urine Negative (Negative)
[2018-09-08 08:17] LABS: Amphetamines+Metham, Urine Pos (Neg); Barbiturates, Urine Neg (Neg); Benzodiazepine, Urine Neg (Neg); Cocaine, Urine Neg (Neg); MDMA (Ecstacy), Urine Pos (Neg); Methadone, Urine Neg (Neg); Opiate, Urine Neg (Neg); Phencyclidine, Urine Neg (Neg)
[2018-09-08 08:32] LABS: Calcium Oxalate Crystals Urine Present (None Prsent); Mucus Urine Present (None Prsent)
[2018-09-08 15:33] VITALS: O2SAT 99
[2018-09-08] MEDS ORDERED: BISMUTH SUBSALICYLATE PER ML OMNICELL CHARGE PO PRN (15:41)
[2018-09-08] MEDS ORDERED: ALUMINUM/MAGNESIUM SUSP 30 ML UDC PO PRN (15:41)
[2018-09-08] MEDS ORDERED: ACETAMINOPHEN 325 MG TAB PO PRN (15:41)
[2018-09-08] MEDS ORDERED: MAGNESIUM HYDROXIDE SUSP 30 ML UDC PO PRN (15:41)
[2018-09-08] MEDS ORDERED: NICOTINE POLACRILEX 2 MG GUM MT PRN (15:41)
[2018-09-08] MEDS ORDERED: SODIUM CHLORIDE 0.65% NA SOLN 45 ML (OCEAN) PRN (15:41)
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
[2018-09-09] MEDS: NICOTINE 14 MG/24 HR PATCH TD SCH (09:30)
[2018-09-10 06:56] VITALS: BP 136/81; TEMP 97.7
[2018-09-10] MEDS: NICOTINE 14 MG/24 HR PATCH TD SCH (08:15)
--- NOTE | 2018-09-10 10:40 | Psychiatric Progress Note ---
Date of Service September 10, 2018 Impression / Recommendations Impression 22-year-old single male who lives alone in [place], has no psychiatric history other than polysubstance abuse, and is admitted voluntarily with paranoia and hallucinations in the context of polysubstance use. UDS positive for THC, amphetamine/methamphetamine, and MDMA. Patient denies knowingly ingesting anything other than THC, so will await confirmatory drug screen results for more information. We will attempt to get collateral information, and continue to monitor the patient's symptoms, while providing education regarding the risks of ongoing substance use. (1) Acute paranoia: 09/09 - Likely substance induced, has not actively psychotic here, but continues to believe that somebody was trying to break into his apartment. -Continue monitoring on a 201 voluntary admission. -Attempt to get collateral information -reliable sources may be lacking. Patient states his parents abuse methamphetamine, and although they were contacted over 24 hours ago when he arrived to the ER, they have not yet called back. -Involve the patient in groups and therapy. Work on healthy coping skills and a discharge safety plan. (2) Cannabis abuse: 09/09 -reviewed risks of ongoing substance use, including recurrence of psychotic symptoms, and recommendations for substance abuse treatment. Patient is in the precontemplation stage of change, unwilling to accept interventions at this time. Continue with motivational interviewing and psychoeducation. -Recovery protocol. (3) Stimulant abuse: 09/09 - UDS positive for amphetamine/methamphetamine - patient states his marijuana was laced with something. Confirmatory results pending. UDS also + MDMA - await confirmatory results. Inventory Assets Strengths: Has stable housing, employed Needs: Abstinence from substances Risk Factors Assessment Male: Yes : Yes Do You Have Access To A Gun?: No Health Problems: No Mental Health Diagnoses: No Substance Use Disorders: Yes Previous Attempt: No Family History of Suicide: No Previous Psychiatric Hospitalization: No Hopelessness: No Smoker: Yes Protective Factors Assessment Druze Beliefs: No : No Responsible for Young Children: Yes Employed: Yes ([employer]) Stable Relationships: No Supportive Family: No Good Rapport with Provider: No Interval History Identifying Information ISAC BURGOS is a 22-year-old M who currently lives in [place], has a self -reported history of bipolar disorder, ADHD, and substance abuse, and was admitted on 09/08/18 15:41 on a 201 voluntary commitment for paranoia. Chief Complaint "[]". Review of Systems Sleep Information Total Hours of Sleep: 8 Sleep Comments: pt appeared to be asleep @MN and thereafter. pt on q-15 minute checks Meal Information Percent Meal Consumed - Breakfast: 100 Percent Meal Consumed - Lunch: 100 Percent Meal Consumed - Dinner: 100 Subjective Subjective Patient was seen & assessed and interval progress reviewed with Treatment Team. Staff report he is isolating in his room in bed, has not been attending groups , but is pleasant on interaction and stated he was willing for outpatient substance abuse treatment. He is eating 100% of meals. His parents have been called multiple times by staff over the past several days, and have not called back. Physical Exam Vital Signs (Past 24 Hours) Last Vital Signs Temp 36.5 C 09/10/18 06:54 Pulse 64 09/10/18 06:55 Resp 16 09/10/18 06:54 BP 136/81 09/10/18 06:55 Pulse Ox 99 09/08/18 15:31 Results & Data Current Inpatient Medications Current Inpatient Medications: Current Inpatient Medications Acetaminophen (Tylenol) 650 mg PO Q4H PRN PRN Reason: Headache or Minor Fever Stop: 10/08/18 15:40 Al Hydrox/Mg Hydrox/Simethicone (Maalox) 30 ml PO Q4H PRN PRN Reason: GI Upset Stop: 10/08/18 15:40 Bismuth Subsalicylate (Kaopectate) 15 ml PO PRN PRN PRN Reason: Loose Stool Stop: 10/08/18 15:40 Hydroxyzine HCl (Vistaril) 50 mg PO HSZ PRN PRN Reason: Insomnia Stop: 10/08/18 15:40 Hydroxyzine HCl (Vistaril) 25 mg PO Q4H PRN PRN Reason: Anxiety Stop: 10/08/18 15:40 Magnesium Hydroxide (Milk Of Magnesia) 30 ml PO DAILY PRN PRN Reason: Heartburn Stop: 10/08/18 15:40 Nicotine (Nicoderm Cq) 14 mg TD QAM LEONIDES Stop: 10/09/18 08:59 Last Admin: 09/10/18 08:15 Dose: Not Given Nicotine Polacrilex (Nicorette 2mg) 1 piece MT UD PRN PRN Reason: Nicotine Withdrawal Stop: 10/08/18 15:40 Sodium Chloride ([place] Nasal) 1 - 2 sprays NA PRN PRN PRN Reason: Nasal Dryness/Congestion Stop: 10/08/18 15:40 Post Discharge Appointments Primary Care Physician Name Of Family Doctor: [facility] Therapist Name of Therapist: Zoila Guzman Therapist's Phone Number: [phone] Date of Therapist Appointment: 09/15/18 Time of Therapist Appointment: 12:00 noon Therapy Appointment Comment: [phone] Sergei Barrett Account Executive Software Sales Name of Account Executive Software Sales: none Contact Information Discharge Discharge Address: [facility] [address] [place] [address] CPT Code CPT Code 22140 [id number]
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
[2018-09-10 11:18] VITALS: PULSE 72
[2018-09-11 08:51] LABS: Amphetamine Urine, Confirm >25000 NG/ML (CUTOF=250); MDA negative; MDEA negative; MDMA (Ecstasy) Urine, Confirm negative; Marijuana Quant, GCMS Urine 98 NG/ML (CUTOFF=5)
[2018-09-11 09:58] LABS: Synthetic Cannabinoid Qual Ur NEGATIVE (Negative)
== END 2018-09-10 12:11 | disposition home or self-care (01) | DRG 897 ==
LOC: ED 04:17 → 3S 15:31